=== PATIENT | female | born 1960 | race African-American/Black ===

== ENCOUNTER 2021-07-05 07:43 | Emergency (ER) | payer OTHER ==
[~2021-07-05] VITALS: Ht 170.2 cm; Wt 52.3 kg
[2021-07-05 09:26] VITALS: BP 143/80
[2021-07-05 09:57] LABS: APPEARANCE,URINE HAZY (CLEAR); BILIRUBIN,URINE NEGATIVE (NEGATIVE); GLUCOSE, URINE (UA) NEGATIVE (NEGATIVE); KETONES,URINE NEGATIVE (NEGATIVE); LEUKOCYTE ESTERASE ,URINE NEGATIVE (NEGATIVE); NITRATE,URINE NEGATIVE (NEGATIVE); OCCULT BLOOD,URINE MODERATE (NEGATIVE); PROTEIN,URINE NEGATIVE (NEGATIVE); SPECIFIC GRAVITIY, URINE 1.003 (1.003-1.030); UROBILINOGEN,URINE <=1.0 mg/dL (<=1.0)
[2021-07-05 10:12] LABS: BACTERIA,URINE None Seen /HPF (None Seen); SQUAMOUS EPITHELIAL CELL,UR Few /LPF (None Seen); WBC,URINE None Seen /HPF (0-5)
== END 2021-07-05 10:24 | disposition home or self-care (01) ==
LOC: EMS 07:47
DX: N20.0 Calculus of kidney (principal); R39.11 Hesitancy of micturition; E78.00 Pure hypercholesterolemia, unspecified; E78.5 Hyperlipidemia, unspecified; F17.210 Nicotine dependence, cigarettes, uncomplicated; F12.90 Cannabis use, unspecified, uncomplicated
CPT/HCPCS: 81001; 99283

== ENCOUNTER 2021-12-30 18:02 | Emergency (ER) | payer OTHER ==
[~2021-12-30] VITALS: Ht 170.2 cm; Wt 52.3 kg
[2021-12-30] MEDS ORDERED: ASPI81TA87 PO (18:13)
[2021-12-30] MEDS ORDERED: SIMV-46 PO (18:13)
[2021-12-30] MEDS ORDERED: IBUPROFEN 800 MG TABLET PO ONE (19:30)
[2021-12-30] MEDS ORDERED: CEPHALEXIN MONOHYDRATE 500 MG CAPSULE PO ONE (19:30)
[2021-12-30] MEDS ORDERED: IBUP-2071 PO (19:32)
[2021-12-30] MEDS ORDERED: AMOX250C4 PO (19:32)
[2021-12-30 20:09] VITALS: BP 132/99
== END 2021-12-30 20:18 | disposition home or self-care (01) ==
LOC: EMS 18:08
DX: K04.7 Periapical abscess without sinus (principal); E78.00 Pure hypercholesterolemia, unspecified; F12.90 Cannabis use, unspecified, uncomplicated; F17.210 Nicotine dependence, cigarettes, uncomplicated
CPT/HCPCS: 99283